=== PATIENT | female | born 1955 | race Caucasian/White ===

== ENCOUNTER 2018-09-07 19:07 | Emergency (ER) | payer BC ==
[2018-09-07] MEDS ORDERED: Diazepam 5 MG Tab PO ONE ×2 (19:38→20:31)
[2018-09-07] MEDS ORDERED: Dexamethasone 4 MG/ML SDV IVPUSH ONE (19:38)
[2018-09-07] MEDS ORDERED: Dexamethasone 4 MG/ML SDV IM ONE (19:43)
--- NOTE | 2018-09-07 19:43 | EDM.PDOC ---
ED HPI GENERAL MEDICAL PROBLEM - General Chief Complaint: General Stated Complaint: LEFT LEG PAIN Time Seen by Provider: 09/07/18 19:37 Source of Information: Reports: Patient History Limitations: Reports: No Limitations - History of Present Illness INITIAL COMMENTS - FREE TEXT/NARRATIVE: Patient is a 62-year-old female who presents to the emergency department this evening with a complaint of low back pain and radiation to left lower extremity. Patient states that she woke up this morning with mild low back pain. Symptoms did not seem that bad. However, she was standing for approximately 3 hours earlier today at a function and following that pain then began to radiate down to her left lower extremity starting from her left buttock down the posterior aspect of her thigh to mid calf. Patient attempted heat compress, which made symptoms worse. Patient took 800 mg Motrin one hour ago with little to no relief. Patient denies abdominal pain, left lower extremity swelling, history of DVT, chest pain, shortness of breath, flank pain , dysuria, nausea, vomiting or diarrhea. Duration: Hour(s): Location: Reports: Back, Lower Extremity, Left Quality: Reports: Ache, Sharp Severity: Moderate Improves with: Reports: Immobilization Worsens with: Reports: Movement Associated Symptoms: Reports: No Other Symptoms. Denies: Fever/Chills, Nausea/ Vomiting, Shortness of Breath Treatments [employer]: Reports: NSAIDS Left Lower Back Pain Score (Numeric/FACES): 8 - Related Data Allergies Allergy/AdvReac Type Severity Reaction Status Date / Time Sulfa (Sulfonamide Allergy Hives Verified 09/07/18 20:06 Antibiotics) Home Meds: Home Meds Methocarbamol [Robaxin] 500 mg PO TID #21 tab 09/07/18 [Rx] atorvaSTATin [Lipitor] 40 mg PO BEDTIME 09/07/18 [History] ED ROS GENERAL - Review of Systems Review Of Systems: ROS reveals no pertinent complaints other than HPI. Constitutional: Reports: No Symptoms HEENT: Reports: No Symptoms Respiratory: Reports: No Symptoms Cardiovascular: Reports: No Symptoms Endocrine: Reports: No Symptoms GI/Abdominal: Reports: No Symptoms : Reports: No Symptoms Musculoskeletal: Reports: Back Pain, Leg Pain Skin: Reports: No Symptoms Neurological: Reports: No Symptoms Psychiatric: Reports: No Symptoms Hematologic/Lymphatic: Reports: No Symptoms Immunologic: Reports: No Symptoms ED EXAM, GENERAL - Physical Exam Exam: See Below Exam Limited By: No Limitations General Appearance: Alert, WD/WN, Mild Distress Throat/Mouth: Normal Inspection, Normal Oropharynx, No Airway Compromise Head: Atraumatic, Normocephalic Neck: Normal Inspection, Supple, Non-Tender, Full Range of Motion Respiratory/Chest: No Respiratory Distress, Lungs Clear, Normal Breath Sounds, No Accessory Muscle Use, Chest Non-Tender Cardiovascular: Regular Rate, Rhythm, No Murmur Peripheral Pulses: 2+: Femoral (L), Femoral (R), Popliteal (L), Popliteal (R), Posterior Tibial (L), Posterior Tibial (R), Dorsalis Pedis (L), Dorsalis Pedis ( R) GI/Abdominal: Normal Bowel Sounds, Soft, Non-Tender, No Organomegaly, No Distention, No Abnormal Bruit, No Mass Back Exam: Paraspinal Tenderness (Left). No: CVA Tenderness (L), CVA Tenderness (R) Extremities: No Pedal Edema, Normal Capillary Refill, Leg Pain (Left lower extremity radicular pain rating from left buttocks down the posterior thigh to mid calf.) Neurological: Alert, Oriented, Normal Cognition, No Motor/Sensory Deficits Psychiatric: Normal Affect, Normal Mood Skin Exam: Warm, Dry, Intact, Normal Color, No Rash Lymphatic: No Adenopathy Course - Vital Signs Last Recorded V/S: Last Vital Signs Temp 97.4 F 09/07/18 19:18 Pulse 70 09/07/18 19:18 Resp 20 09/07/18 19:18 BP 179/75 H 09/07/18 19:18 Pulse Ox 97 09/07/18 19:18 - Radiology Interpretation Free Text/Narrative:: Lumbar x-ray shows mild to moderate DJD at L4-L5. No acute fracture or herniation - Re-Assessments/Exams Free Text/Narrative Re-Assessment/Exam: 09/07/18 20:34 Patient afebrile, vital signs stable, pain controlled. Patient given 8 mg Decadron IM, 5 mg Valium in ER. Patient given prescription for Robaxin. Patient will follow-up at [facility] for consideration of MRI. Departure - Departure Time of Disposition: 20:35 Disposition: Home, Self-Care 01 Condition: Good Clinical Impression: Back pain at L4-L5 level, Sciatica of left side - Discharge Information Instructions: Sciatica, [id number], Acute Back Pain, Adult Referrals: Kirsten Edward PA-C [Primary Care Provider] - Additional Instructions: Follow-up at [facility] in 2-3 days. Return to emergency department sooner if symptoms continue or worsen. Take medication as directed. - Assessment/Plan Assessment:: Low back pain with sciatica Plan: Follow-up with PCP
[2018-09-07] MEDS ORDERED: Diazepam 5 MG Tab ONE (20:03)
[2018-09-08] MEDS ORDERED: Acetaminophen/HYDROcodone 325-5 MG Tab PO PRN (03:16)
--- NOTE | 2018-09-08 09:11 | CR ---
[id number] RAD/RAD Lumbar Spine 2-3V EXAM: LUMBAR SPINE 3 VIEWS INDICATION: SCIATICA. COMPARISON: None. DISCUSSION: There is a very slight convex right curvature centered at the thoracolumbar junction and leftward curvature centered at L4. Grade 1 L4-L5 spondylolisthesis. No fracture or suspicious bone lesion is identified. Moderate degenerative disc disease at L2-L3 with mild to moderate degenerative changes at the remaining lumbar disc levels. Bilateral facet arthropathy is noted in the lower lumbar spine. Prominent colonic stool volume. IMPRESSION: 1. Mild to moderate lumbar spondylosis. 2. Grade 1 L4-L5 spondylolisthesis. Nikolas Chan MD 09/08/18 [id number] Thank you for allowing us to participate in the care of your patient.
== END 2018-09-07 20:50 | disposition home or self-care (01) ==
LOC: KA.ED 19:07
DX: M54.42 Lumbago with sciatica, left side (principal); Z88.2 Allergy status to sulfonamides; Z79.899 Other long term (current) drug therapy
CPT/HCPCS: 72100; 96374; 99283-25; A9270-GY; J1100

== ENCOUNTER 2025-01-20 07:02 | Day surgery (SDC) | payer MEDICARE ==
[~2025-01-20 07:02] MED LIST: Sodium Chloride 0.9% 10 ML Syringe FLUSH PRN
[2025-01-20] MEDS: Lactated Ringers 1,000 ML IV SCH (07:31)
[2025-01-20 07:45] LABS: GLUCOSE,POC 111 mg/dL (70-140)
[2025-01-20] MEDS ORDERED: Propofol 200 MG/20 ML SDV ONE (07:57)
[2025-01-20] MEDS ORDERED: Midazolam 1 MG/ML 2 ML SDV ONE (07:57)
[2025-01-20 10:06] VITALS: PULSE 68
[2025-01-20 10:08] VITALS: BP 156/71
== END 2025-01-20 09:55 | disposition home or self-care (01) ==
LOC: KA.SDS 07:02
PROVIDERS: ATTEND Family Medicine
DX: K29.50 Unspecified chronic gastritis without bleeding (principal); B96.81 Helicobacter pylori [H. pylori] as the cause of diseases classified elsewhere; K21.00 Gastro-esophageal reflux disease with esophagitis, without bleeding; K44.9 Diaphragmatic hernia without obstruction or gangrene; E78.5 Hyperlipidemia, unspecified; Z88.2 Allergy status to sulfonamides; Z88.8 Allergy status to other drugs, medicaments and biological substances; Z79.82 Long term (current) use of aspirin; Z79.899 Other long term (current) drug therapy
CPT/HCPCS: 00731; 82947; 88305; 88342; 99100; J1596; J2250; J2704; J7120